=== PATIENT | female | born 1940 | race Caucasian/White ===

== ENCOUNTER 2017-09-13 09:59 | Day surgery (SDC) | payer MEDICARE, BC ==
[~2017-09-13] VITALS: Ht 162.6 cm; Wt 100.2 kg
[~2017-09-13 09:59] MED LIST: ASPI81EC PO; ATEN100 PO; AZAT50 PO; COLE1 PO; LANS30EC PO; LOPE2C PO; MESA250ER; MESA250ER PO; NITR.3SL SL; SUCR1 PO; TRAZ100; TRAZ50 PO
[2017-09-13] MEDS ORDERED: LOSA50 (10:57)
[2017-09-13] MEDS ORDERED: AMLO5 (10:58)
[2017-09-13] MEDS ORDERED: TRAM50 (10:59)
[2017-09-13] MEDS ORDERED: SIME40L (10:59)
== END 2017-09-13 12:34 | disposition home or self-care (01) ==
LOC: ORSCSDS 09:59
PROVIDERS: Internal Medicine Gastroenterology
PROC: 0DBB8ZX Excision of Ileum, Via Natural or Artificial Opening Endoscopic, Diagnostic (ICD-10-PCS; principal; 2017-09-13 11:15)
DX: R14.0 Abdominal distension (gaseous) (principal); K51.90 Ulcerative colitis, unspecified, without complications; K57.30 Diverticulosis of large intestine without perforation or abscess without bleeding; K50.00 Crohn's disease of small intestine without complications; I10 Essential (primary) hypertension; Z79.899 Other long term (current) drug therapy; I48.91 Unspecified atrial fibrillation; E66.01 Morbid (severe) obesity due to excess calories; Z68.37 Body mass index [BMI] 37.0-37.9, adult
CPT/HCPCS: 88305; J1980; J7120

== ENCOUNTER 2020-05-22 20:35 | Inpatient (IN) | payer MEDICARE, BC ==
[~2020-05-22] VITALS: Ht 160 cm; Wt 103.4 kg
[~2020-05-22 20:35] MED LIST changes: +AMLO5; +LOSA50 PO; +SIME40L; +TRAM50
[2020-05-22] MEDS ORDERED: COLESTIPOL HCL1 G1 PO (20:50)
[2020-05-22] MEDS ORDERED: LOSA50 PO (20:50)
[2020-05-22 21:11] LABS: BASOPHILS ABSOLUTE AUTO 0.03 K/mm3 (0.00-0.23); BASOPHILS PERCENT AUTO 0 % (0-2); EOSINOPHILS ABSOLUTE AUTO 0.01 K/mm3 (0.00-0.68); EOSINOPHILS PERCENT AUTO 0 % (0-6); Hematocrit 42.2 % (33.0-51.0); Hemoglobin 14.3 g/dL (11.5-16.0); IMMATURE GRAN ABSOLUTE AUTO 0.09 K/mm3 (0.00-0.10); IMMATURE GRAN PERCENT AUTO 1 % (0-1); LYMPHOCYTES ABSOLUTE AUTO 0.96 K/mm3 (0.84-5.20); LYMPHOCYTES PERCENT AUTO 5 % (21-46); MONOCYTES ABSOLUTE AUTO 0.76 K/mm3 (0.16-1.47); MONOCYTES PERCENT AUTO 4 % (4-13); Mean Corpuscular HGB 32.1 pg (26.0-34.0); Mean Corpuscular HGB Conc 33.9 g/dL (31.5-36.5); Mean Corpuscular Volume 95 fL (80-100); Mean Platelet Volume 10.7 fL (9.1-12.4); NEUTROPHILS ABSOLUTE AUTO 16.67 K/mm3 (1.96-9.15); NEUTROPHILS PERCENT AUTO 90 % (41-73); Platelet Count 285 K/mm3 (150-400); RDW Coefficient Variation 12.5 % (11.7-14.2); RDW Standard Deviation 43.6 fL (35.1-46.3); Red Blood Cell Count 4.45 M/mm3 (3.80-5.20); White Blood Cell Count 18.52 K/mm3 (4.00-11.30)
[2020-05-22 21:29] LABS: Alanine Aminotransfer (ALT/SGP 32 U/L (12-78); Albumin, Blood 3.7 g/dL (3.4-5.0); Albumin/Globulin Ratio 1.2 (0.8-1.8); Alk Phos 113 U/L (50-136); Anion Gap 8 mmol/L (6-16); Aspartate Aminotrans (AST/SGOT 26 U/L (12-37); Blood Urea Nitrogen 17 mg/dL (8-24); Bun/Creatinine Ratio 25.1 (12.0-20.0); CO2, Blood 28 mmol/L (21-32); Calcium, Blood 9.8 mg/dL (8.5-10.1); Chloride, Blood 100 mmol/L (98-108); Creatinine, Blood 0.68 mg/dL (0.40-1.00); Globulin, Blood 3.2 g/dL (2.2-4.0); Glomerular Filtration Rate >60 (60-); Glucose, Blood 128 mg/dL (70-99); Potassium, Blood 3.9 mmol/L (3.5-5.5); Sodium, Blood 136 mmol/L (136-145); Total Protein, Blood 6.9 g/dL (6.4-8.2)
[2020-05-23 01:33] LABS: Influenza A, PCR NEGATIVE (NEGATIVE); Influenza B, PCR NEGATIVE (NEGATIVE); Resp Syncytial Virus, PCR NEGATIVE (NEGATIVE); SARS-Cov-2 (COVID-19) PCR, MMC NEGATIVE (NEGATIVE)
[2020-05-23] MEDS ORDERED: TRAM50 PO (02:25)
[2020-05-23] MEDS ORDERED: SIMETHICONE125 MG PO (02:25)
[2020-05-23] MEDS ORDERED: Calcium 600 W/1 EAC1 PO (02:27)
[2020-05-23] MEDS ORDERED: COQ-10100 MG PO (02:28)
[2020-05-23] MEDS ORDERED: CHROMIUM400 MCG PO (02:28)
[2020-05-23] MEDS ORDERED: FEROSUL325 M1 PO (02:30)
[2020-05-23] MEDS ORDERED: LUTEIN20 MG PO (02:31)
[2020-05-23] MEDS ORDERED: IRON18 MG PO (02:31)
[2020-05-23] MEDS ORDERED: MULTIPLE VITAM1 EACH PO (02:32)
[2020-05-23] MEDS ORDERED: PROBIOTIC1 EA13 PO (02:33)
[2020-05-23] MEDS ORDERED: Selenomax200 MCG PO (02:33)
[2020-05-23] MEDS ORDERED: Vitamin B-Comp1 EACH PO (02:34)
[2020-05-23] MEDS ORDERED: MAGNESIUM COMP300 MG PO (02:34)
[2020-05-23] MEDS ORDERED: Vitamin B-121000 MCG PO (02:35)
[2020-05-23] MEDS ORDERED: VITAMIN K240 MCG PO (02:36)
[2020-05-23] MEDS ORDERED: VITAMIN D5000 UNIT PO (02:36)
--- NOTE | 2020-05-23 02:54 | NUR ---
NEW ADMIT FROM ER FOR SBO R/T HERNIA. PT IS A/O ABLE TO STAND AND AMBULATE TO FROM [facility]. PT DENIES ANY PAIN OR N/V AT THIS TIME. NGT IS SET TO LIS AND DRAINING GREEN FLUID. BT ARE PRESENT X4, PT STATES HAD A SMALL BM YESTERDAY MORNING. IV INFUSING, SCD'S IN PLACE. REVIEWED ALL ORDERS AND TREATMENT PLANS. NO FURTHER QUESTIONS AT THIS TIME. CALL LIGHT IN REACH.
[2020-05-23 03:07] LABS: BASOPHILS ABSOLUTE AUTO 0.03 K/mm3 (0.00-0.23); BASOPHILS PERCENT AUTO 0 % (0-2); EOSINOPHILS PERCENT AUTO 0 % (0-6); Hematocrit 38.5 % (33.0-51.0); Hemoglobin 13.3 g/dL (11.5-16.0); IMMATURE GRAN ABSOLUTE AUTO 0.07 K/mm3 (0.00-0.10); IMMATURE GRAN PERCENT AUTO 0 % (0-1); LYMPHOCYTES ABSOLUTE AUTO 0.58 K/mm3 (0.84-5.20); LYMPHOCYTES PERCENT AUTO 3 % (21-46); MONOCYTES PERCENT AUTO 4 % (4-13); Mean Corpuscular HGB 32.2 pg (26.0-34.0); Mean Corpuscular HGB Conc 34.5 g/dL (31.5-36.5); Mean Corpuscular Volume 93 fL (80-100); Mean Platelet Volume 10.6 fL (9.1-12.4); NEUTROPHILS ABSOLUTE AUTO 19.56 K/mm3 (1.96-9.15); NEUTROPHILS PERCENT AUTO 93 % (41-73); Platelet Count 282 K/mm3 (150-400); RDW Coefficient Variation 12.6 % (11.7-14.2); RDW Standard Deviation 43.4 fL (35.1-46.3); Red Blood Cell Count 4.13 M/mm3 (3.80-5.20); White Blood Cell Count 21.14 K/mm3 (4.00-11.30)
[2020-05-23 03:25] LABS: Alanine Aminotransfer (ALT/SGP 45 U/L (12-78); Albumin, Blood 3.4 g/dL (3.4-5.0); Albumin/Globulin Ratio 1.1 (0.8-1.8); Alk Phos 106 U/L (50-136); Anion Gap 9 mmol/L (6-16); Aspartate Aminotrans (AST/SGOT 38 U/L (12-37); Bilirubin, Total 1.1 mg/dL (0.1-1.0); Blood Urea Nitrogen 18 mg/dL (8-24); Bun/Creatinine Ratio 25.8 (12.0-20.0); CO2, Blood 27 mmol/L (21-32); Calcium, Blood 9.2 mg/dL (8.5-10.1); Chloride, Blood 98 mmol/L (98-108); Glomerular Filtration Rate >60 (60-); Glucose, Blood 140 mg/dL (70-99); Potassium, Blood 4.1 mmol/L (3.5-5.5); Sodium, Blood 134 mmol/L (136-145); Total Protein, Blood 6.4 g/dL (6.4-8.2)
--- NOTE | 2020-05-23 04:51 | NUR ---
SHIFT SUMMARY PT NEW ADMIT THIS SHIFT. AAOX4. NPO DISCOMFORT CONTROLLED WITH 50mcg FENTANYL. NO NAUSEA/EMESIS. NGT TO LIS, SMALL AMOUNT CLEAR GREEN OUT. ABD DISTENDED WITH HERNIA NOTED, PT REPORTING DISTENTION AT BASELINE. HYPERACTIVE BTX4 THIS AM. SBA TO TRANSFER IN ROOM. PT ORIENTED TO ROOM + CALL LIGHT USE. RESTING WELL SINCE ADMISSION TO ROOM WITH CALL LIGHT IN REACH.
--- NOTE | 2020-05-23 12:26 | NUR ---
1210 TO DAY SURGERY VIA [facility]
--- NOTE | 2020-05-23 16:54 | NUR ---
1645 returned to room. abd with lap sites x5 with dermabond in place. ng with green/yellow output. pt reports pain 8/10 medicated with fentanyl
--- NOTE | 2020-05-23 17:52 | NUR ---
summary ng with 350 ml. milky yellow/green output since return from [facility]. pt reports abd painful but at acceptable pain level after fentanyl given. abd sites dry and intact
[2020-05-24 04:41] LABS: Hematocrit 36.1 % (33.0-51.0); Hemoglobin 12.1 g/dL (11.5-16.0); Mean Corpuscular HGB 32.1 pg (26.0-34.0); Mean Corpuscular HGB Conc 33.5 g/dL (31.5-36.5); Mean Corpuscular Volume 96 fL (80-100); Mean Platelet Volume 10.7 fL (9.1-12.4); Platelet Count 225 K/mm3 (150-400); RDW Coefficient Variation 13.3 % (11.7-14.2); RDW Standard Deviation 47.1 fL (35.1-46.3); Red Blood Cell Count 3.77 M/mm3 (3.80-5.20); White Blood Cell Count 6.45 K/mm3 (4.00-11.30)
[2020-05-24 05:16] LABS: Albumin, Blood 2.9 g/dL (3.4-5.0); Anion Gap 7 mmol/L (6-16); Blood Urea Nitrogen 23 mg/dL (8-24); Bun/Creatinine Ratio 27.9 (12.0-20.0); CO2, Blood 28 mmol/L (21-32); Calcium, Blood 8.3 mg/dL (8.5-10.1); Chloride, Blood 103 mmol/L (98-108); Creatinine, Blood 0.82 mg/dL (0.40-1.00); Glomerular Filtration Rate >60 (60-); Glucose, Blood 119 mg/dL (70-99); Phosphorus, Blood 3.7 mg/dL (2.5-4.9); Potassium, Blood 3.7 mmol/L (3.5-5.5); Sodium, Blood 138 mmol/L (136-145)
--- NOTE | 2020-05-24 05:30 | NUR ---
SHIFT SUMMARY POD#1 ABD LYSIS ADHESIONS WITH HERNIA REPAIR. AAOX4. DISCOMFORT CONTROLLED WITH 50mcg FENTANYL + TORADOL X1. NO NAUSEA/EMESIS. ABD INCISIONS WITH WOUND GLUE C/D/I. NGT TO LIS, 500cc GRANULATED GREEN/LIGHT BROWN OUT. PT UP TO BSC 2 PERSON MAX ASSIST, PT USED BEDPAIN WELL, ENCOURAGE MOVEMENT TODAY TOLERATED. IVF PER ORDERS. PT RESTING WELL IN BED THIS AM WITH CALL LIGHT IN REACH.
[2020-05-24 05:31] LABS: BAND PERCENT MAN 30 % (0-8); BASOPHILS PERCENT MAN 0 % (0-2); EOSINOPHILS ABSOLUTE MAN 0.06 K/mm3 (0.00-0.68); EOSINOPHILS PERCENT MAN 1 % (0-6); LYMPHOCYTES ABSOLUTE MAN 0.32 K/mm3 (0.84-5.20); LYMPHOCYTES PERCENT MAN 5 % (21-46); MONOCYTES ABSOLUTE MAN 0.77 K/mm3 (0.16-1.47); MONOCYTES PERCENT MAN 12 % (4-13); NEUTROPHILS ABSOLUTE MAN 5.28 K/mm3 (1.96-9.15); SEG NEUTROPHILS PERCENT MAN 52 % (41-73); TOTAL CELLS COUNTED 100
--- NOTE | 2020-05-24 09:07 | NUR ---
0830 NG CLAMPED, PT INSTRUCTED TO NOTIFY STAFF IF NAUSEA OR INCREASED ABD PAIN
--- NOTE | 2020-05-24 11:11 | NUR ---
pt reports roof of mouth and side of cheek feel scraped up, pt tells me she is aware that she was difficult to intubate yesterday prior to surgery
--- NOTE | 2020-05-24 12:45 | NUR ---
NG UNCLAMPED, SCANT SMOUNT BROWN RETURN AT THIS TIME
--- NOTE | 2020-05-24 14:38 | NUR ---
PT DENIES NAUSEA, NG REMOVED PER ORDER, PT TAKING SIPS OF WATER
--- NOTE | 2020-05-25 05:43 | NUR ---
SHIFT SUMMARY: PT POD#2 FOR LYSIS OF ADHESIONS. LAP SITES C/D/I WITH WOUND GLUE. NO DRG NOTED. HYPOACTIVE BT THROUGHOUT. PT DENIES PASSING FLATUS BUT HAS BEEN HAVING LIQ STOOL T/O SHIFT. PT REPORTS DIARRHEA R/T NOT TAKING HER CROHNS DISEASE MEDICATION. PT AMBULATING TO BATHROOM W/FWW AND SBA. TOLERATING ACTIVITY WELL. PT CONTINUES TO C/O MILD HEADACHE. MEDICATED WITH TORADOL PER EMAR. PT MEDICATED WITH ZOFRAN THIS MORNING FOR NAUSEA. NO EMESIS. IVF INFUSING PER EMAR.
--- NOTE | 2020-05-25 17:14 | NUR ---
SUMMARY: NO ACUTE CHANGE TODAY, VSS, A/O. SURGICAL SITES WNL, PT REPORTS FEELING "MUCH BETTER" TODAY COMPARED TO YESTERDAY. MINIMAL PAIN, CONTINUES TO HAVE SOME LIQ STOOLS, PT RESTARTED ON [facility] MED. SONIA DIET. NO SAFETY CONCERNS, PLAN IS DC TOMORROW.
--- NOTE | 2020-05-26 07:24 | NUR ---
POD 3 S/P OZZIE+HERNIA REP. PT VSS T/O NIGHT. INCISIONS CDI. PT SONIA REG PO, NO C/O N/V. IMMODIUM GIVEN X1, PT REP DIARRHEA IMPROVING. PT MED FOR PAIN X1 W/REP RELIEF. IVF CONT PER ORDERS. PT AMB W/FWW+SBA, REP STRENGTH IMPROVING, BUT STILL FEELS WEAK. REPORT GIVEN TO ADITYA Jewell RN.
--- NOTE | 2020-05-26 17:18 | NUR ---
SUMMARY: NO CHANGE TODAY. VSS, A/O. SURGICAL SITES WNL, PT UP WITH FWW, SBA, MOVING WELL. MINIMAL PAIN REPORTED, WORSE WITH MOVEMENT. PT REPORTS LIQ STOOL "SLOWING DOWN". NO SAFETY CONCERNS, PLAN FOR DC TOMORROW.
--- NOTE | 2020-05-27 07:41 | NUR ---
POD 4 S/P OZZIE+HERNIA REP. PT VSS. INCISIONS CDI. PT SONIA PO, NO N/V. BT ACTIVE, PT REP +FLATUS, NO BM THIS SHIFT. PT REP STRENGTH IMPROVING, ALTHOUGH REP IS SITLL WEAKER THAN BASELINE; AMB W/FWW+SBA. PLAN TO MOBILIZE AND DC HOME.
[2020-05-27] MEDS ORDERED: ONDA4ODT MM (11:17)
--- NOTE | 2020-05-27 17:46 | NUR ---
SHIFT SUMMARY PT HAS DONE VERY WELL TODAY. AMBULATING, UP TO CHAIR, EATING & DRINKING WELL. PAIN CONTROLLED W/ BENNY. PLAN FOR D/C TOMORROW AM.
--- NOTE | 2020-05-28 03:51 | NUR ---
SHIFT SUMMARY: SBO FROM [facility] POD 5 LAP ABLASION PATIENT IS ALERT AND ORIENTED X4 WHILE AWAKE. SHE HAS BEEN ASLEEP MAJORITY OF THE SHIFT BUT IS EASILY AROUSABLE. VS ARE WNL AND IS ON RA. PAIN IS CONTROLLED WITH 1 NORCO. HER X5 LAP SITES ARE INTACT WITH NO DRAINAGE. SHE IS ABLE TO AMBULATE AND TOLERATING PO INTAKE. SHE IS VOIDING AND HAD A SMALL BM YESTERDAY. CALLS APPROPRIATELY. SHE IS A SBA WITH FWW AND GAIT BELT. DENIES NAUSEA OR VOMITING. CALL LIGHT WITHIN REACH. SHE IS CURRENTLY LAYING IN BED WITH EVEN/EQUAL RESP. SHE IS A PLEASANT PATIENT TO TAKE CARE OF. THE PLAN IS TO BE POSSIBLY DISCHARGED LATER TODAY.
[2020-05-28] MEDS ORDERED: HYDR1TAB94 PO (09:18)
--- NOTE | 2020-05-28 10:26 | NUR ---
DISCHARGE ED DISCUSSED NEW MEDS & DISCHARGE INSTRUCTIONS. SCRIPT GIVEN. EATING, DRINKING, VOIDING WELL. PAIN WELL MANAGED. STEADY GAIT. FEELS READY & EXCITED TO GO HOME. WAITING ON RIDE.
--- NOTE | 2020-05-28 11:41 | NUR ---
DISCHARGED ESCORTED OUT VIA W/C
== END 2020-05-28 11:24 | disposition home or self-care (01) | DRG 336 ==
LOC: ER 20:35 → SURS 23:40 → ER 05-23 01:15 → SURS 05-23 01:19
PROVIDERS: Emergency Medicine; Family Medicine; Physician Assistant; Surgery; ADMIT Internal Medicine
PROC: 0DNU4ZZ Release Omentum, Percutaneous Endoscopic Approach (ICD-10-PCS; principal; 2020-05-23 13:00)
PROC: 0WUF4JZ Supplement Abdominal Wall with Synthetic Substitute, Percutaneous Endoscopic Approach (ICD-10-PCS; 2020-05-23 13:00)
DX: K43.0 Incisional hernia with obstruction, without gangrene (principal); K50.90 Crohn's disease, unspecified, without complications; E87.2 Acidosis; E87.1 Hypo-osmolality and hyponatremia; D72.829 Elevated white blood cell count, unspecified; K21.9 Gastro-esophageal reflux disease without esophagitis; Z20.822 Contact with and (suspected) exposure to COVID-19; I10 Essential (primary) hypertension; Z88.0 Allergy status to penicillin; Z88.5 Allergy status to narcotic agent; Z88.8 Allergy status to other drugs, medicaments and biological substances; Z79.899 Other long term (current) drug therapy; E66.9 Obesity, unspecified; Z90.710 Acquired absence of both cervix and uterus; Z90.49 Acquired absence of other specified parts of digestive tract; Z98.890 Other specified postprocedural states
CPT/HCPCS: 0241U; 36415; 71045; 74177; 80053; 80069; 83605; 83690; 85025; 93005; 93010; 96374; 96375; 96376; 97110; 97116; 97162; 97530; 99285-25; A9270; C1781; J0690; J1100; J1650; J1885; J2250; J2270; J2370; J2405; J2704; J2765; J3010; J7030; J7120; Q9967

== ENCOUNTER 2021-07-04 10:55 | Emergency (ER) | payer MEDICARE, BC ==
[~2021-07-04] VITALS: Ht 160 cm; Wt 97.5 kg
[~2021-07-04 10:55] MED LIST changes: +CHROMIUM400 MCG PO; +COLESTIPOL HCL1 G1 PO; +COQ-10100 MG PO; +Calcium 600 W/1 EAC1 PO; +FEROSUL325 M1 PO; +HYDR1TAB94 PO; +IRON18 MG PO; +LUTEIN20 MG PO; +MAGNESIUM COMP300 MG PO; +MULTIPLE VITAM1 EACH PO; +ONDA4ODT MM; +PROBIOTIC1 EA13 PO; +SIMETHICONE125 MG PO; +Selenomax200 MCG PO; +TRAM50 PO; +VITAMIN D5000 UNIT PO; +VITAMIN K240 MCG PO; +Vitamin B-121000 MCG PO; +Vitamin B-Comp1 EACH PO
[2021-07-04] MEDS ORDERED: TRAM50 PO (14:22)
== END 2021-07-04 14:54 | disposition home or self-care (01) ==
LOC: ER 10:55
DX: S52.571A Other intraarticular fracture of lower end of right radius, initial encounter for closed fracture (principal); I10 Essential (primary) hypertension; K21.9 Gastro-esophageal reflux disease without esophagitis; W18.39XA Other fall on same level, initial encounter; Y93.E2 Activity, laundry; Z88.0 Allergy status to penicillin; Z88.5 Allergy status to narcotic agent; Z88.8 Allergy status to other drugs, medicaments and biological substances; Z91.09 Other allergy status, other than to drugs and biological substances
CPT/HCPCS: 73100; 73110; J2405; J2704; J3010; J7030

== ENCOUNTER 2023-09-06 14:33 | Emergency (ER) | payer MEDICARE, BC ==
[~2023-09-06] VITALS: Ht 172.7 cm; Wt 86.2 kg
[2023-09-06] MEDS ORDERED: Labetalol HCL 5 MG/ML 4ML Injection (Single Dose) IV ONE (14:45)
[2023-09-06 15:30] LABS: BASOPHILS ABSOLUTE AUTO 0.03 K/mm3 (0.00-0.23); BASOPHILS PERCENT AUTO 0 % (0-2); EOSINOPHILS ABSOLUTE AUTO 0.04 K/mm3 (0.00-0.68); EOSINOPHILS PERCENT AUTO 0 % (0-6); Hematocrit 39.6 % (33.0-51.0); Hemoglobin 13.1 g/dL (11.5-16.0); IMMATURE GRAN ABSOLUTE AUTO 0.04 K/mm3 (0.00-0.10); IMMATURE GRAN PERCENT AUTO 0 % (0-1); LYMPHOCYTES ABSOLUTE AUTO 1.79 K/mm3 (0.84-5.20); LYMPHOCYTES PERCENT AUTO 17 % (21-46); MONOCYTES ABSOLUTE AUTO 0.47 K/mm3 (0.16-1.47); MONOCYTES PERCENT AUTO 5 % (4-13); Mean Corpuscular HGB Conc 33.1 g/dL (31.5-36.5); Mean Corpuscular Volume 97 fL (80-100); NEUTROPHILS ABSOLUTE AUTO 8.14 K/mm3 (1.96-9.15); NEUTROPHILS PERCENT AUTO 77 % (41-73); Platelet Count 248 K/mm3 (150-400); RDW Coefficient Variation 12.6 % (11.7-14.2); RDW Standard Deviation 45.2 fL (35.1-46.3); White Blood Cell Count 10.51 K/mm3 (4.00-11.30)
[2023-09-06 15:43] LABS: Albumin, Blood 3.3 g/dL (3.4-5.0); Albumin/Globulin Ratio 1.1 (0.8-1.8); Bilirubin, Total 0.6 mg/dL (0.1-1.0); Bun/Creatinine Ratio 21.9 (12.0-20.0); Creatinine, Blood 0.73 mg/dL (0.40-1.00); Globulin, Blood 3.1 g/dL (2.2-4.0); Potassium, Blood 3.5 mmol/L (3.5-5.5); Total Protein, Blood 6.4 g/dL (6.4-8.2)
[2023-09-06 16:02] VITALS: BP 135/77
== END 2023-09-06 16:17 | disposition home or self-care (01) ==
LOC: ER 14:33
PROVIDERS: Emergency Medicine
DX: I10 Essential (primary) hypertension (principal); K21.9 Gastro-esophageal reflux disease without esophagitis; Z79.899 Other long term (current) drug therapy; Z88.0 Allergy status to penicillin; Z88.5 Allergy status to narcotic agent; Z88.8 Allergy status to other drugs, medicaments and biological substances; Z91.048 Other nonmedicinal substance allergy status
CPT/HCPCS: 80053; 85025; 93005; 93010; 96374; 99284-25